=== PATIENT | female | born 1945 | race Caucasian/White ===

== ENCOUNTER 2023-09-23 22:45 | Inpatient (IN) | payer MEDICARE, OTHER, SELFPAY ==
[2023-09-23] VITALS (24 sets, daily range): BP systolic 148–234; BP diastolic 69–131; BMI 23.0
[2023-09-23 17:19] LABS: % Basophils 0.5 % (0-2); % Eosinophils 0.6 % (0-6); % Immature Granulocytes 0.3 % (0-0.5); % Lymphocytes 16.2 % (20.5-51.1); % Monocytes 5.9 % (1.7-9.3); % Neutrophils 76.5 % (42.2-75.2); Absolute Basophils 0.1 10^3/uL (0-0.2); Absolute Eosinophils 0.1 10^3/uL (0-0.7); Absolute Lymphocytes 1.6 10^3/uL (1.2-3.4); Absolute Monocytes 0.6 10^3/uL (0.1-0.6); Absolute Neutrophils 7.3 10^3/uL (1.4-6.5); Hematocrit 34.9 % (37.0-47.0); Hemoglobin 12.4 g/dL (12.0-16.0); Mean Corp Hgb Conc. 35.5 g/dL (33.0-37.0); Mean Corpuscular Hgb 32.5 pg (27.0-31.0); Mean Corpuscular Volume 91.6 fL (81.0-99.0); Mean Platelet Volume 8.1 fL (7.4-10.4); Nucleated Red Blood Cells % 0 %; Platelet Count 260 10^3/uL (130-400); Red Blood Cell Count 3.81 10^6/uL (4.20-5.40); Red Cell Dist. Width 13.3 % (11.5-14.5); White Blood Cell Count 9.6 10^3/uL (4.8-10.8)
[2023-09-23 17:30] LABS: ALT (SGPT) 21 U/L (0-35); AST (SGOT) 32 U/L (14-36); Albumin 4.8 g/dl (3.5-5.0); Alkaline Phosphatase 85 U/L (38-126); Blood Urea Nitrogen 19 mg/dl (7-17); Calcium 10.3 mg/dl (8.4-10.2); Carbon Dioxide 26 mmol/L (22-30); Chloride 97 mmol/L (98-107); Glucose 107 mg/dl (70-99); Potassium 4.5 mmol/L (3.5-5.1); Sodium 130 mmol/L (135-145); Total Bilirubin 0.7 mg/dl (0.2-1.3); Total Protein 7.1 g/dl (6.3-8.2); eGFR > 60.00
[2023-09-23] MEDS: APRESOLINE 10 MG IV (18:39)
--- NOTE | 2023-09-23 19:08 | ED.GENMED ---
History of Present Illness
<Blas Ahn MD, Resident - Last Filed: 09/24/23 00:14>
General
Chief Complaint: Change in Mental Status
Source: patient and family
Time Seen by Provider: 09/23/23 17:33
History of Present Illness
History of Present Illness:
78-year-old female, Ms. Ene [place] past medical history significant for hypertension, GERD, gout, osteoarthritis presented to the ER for getting her blood pressure, headache and episodes of confusion evaluated. Patient's states that she
has episodes of confusion from the past 1 year, 2-3 times every month. Patient also reports having blurry vision and headaches from the past 2 months and has scheduled a visit to see an outreach director. Patient stopped taking amlodipine 3 months
ago, currently on lisinopril and atenolol for her blood pressure management. She reports that her blood pressure was normal during her primary care visit on 09/20/2023. Patient's reports that she appeared a little confused in the morning,
she was holding flashlight in her hand and trying to switch on the TV, thinking that it was the TV remote. Patient also reports having headache 4/10, frontal, dull aching, but not has not taken any medications. Patient also reports that she lost
around 50 lbs in 2 years accompanied with loss of appetite.
Past History
<Blas Ahn MD, Resident - Last Filed: 09/24/23 00:14>
Past History
ED Past Medical History: CAD, HTN and Other (Gout)
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
Social History
Tobacco: Non-smoker
Alcohol: Occasional
Drug: Marijuana (Medical marijuana)
Personal:
Living: with family
Phy Exam
<Blas Ahn MD, Resident - Last Filed: 09/24/23 00:14>
Physical Exam
Physical Exam:
GEN: Well appearing, NAD, WDWN
Eyes: PERRLA, EOMs intact, no scleral icterus
HENT: NCAT, oral mucosa moist, no JVD, no cervical adenopathy.
Lungs: CTAB, no wheezes, rales, rhonchi, normal chest wall excursion
Cardiac: S1-S2+, no peripheral edema. Radial pulses 2+ bilat
Abdomen: S, NT, ND, NABS, no masses or hepatosplenomegaly
Neuro: AO x 3, no focal deficits to BUE/BLE, normal sensation throughout, cranial nerve examination 2-12 grossly intact.
Skin: No rashes, petechiae. Normal color, no pallor or jaundice.
Psych: Calm, cooperative, proper hygiene
Course
<Blas Ahn MD, Resident - Last Filed: 09/24/23 00:14>
Orders/Labs/Results
Orders:
Orders
09/23/23 17:02
Electrocardiogram (*1) Urgent
Reason for Study: TIA/Stroke
CT Head W/o Iv Contrast Urgent
Comment:
Reason For Exam: headache and confusion starting today
09/23/23 17:03
EKG- Treatment ONCE
09/23/23 17:12
Complete Blood Count/With Diff Urgent
Comprehensive Metabolic Panel Urgent
09/23/23 17:49
HydrALAZINE [Apresoline] 10 mg PO NOW STA
09/23/23 18:32
HydrALAZINE [Apresoline] 10 mg IV NOW STA
09/23/23 18:34
HydrALAZINE [Apresoline] 20 mg .ROUTE .STK-MED ONE
09/23/23 19:15
Labetalol HCl [Trandate] 10 mg IV NOW STA
09/23/23 21:45
Nicardipine 40 mg/200 ml [Cardene] 40 mg in 200 ml IV PER PROTOCOL
Initial dose in mg/hr, then titrate:: 5
Titrate to keep:: SBP 140 - 160 mmHg
Titrate by mg/hr:: 2.5 mg/hr
Frequency of titrations (minutes):: 5-15 minutes
Maximum dose in mg/hr:: 15
Begin to taper infusion when:: Remained at goal for 2hrs
Taper by mg/hr:: 2.5 mg/hr
Frequency of taper (minutes) if patient maintains goal:: every 15-30 minutes
Taper to off?: Yes
If infusion off & no longer maintaining goal:: Contact Provider
Nitroglycerin 100 mg/250 ml [Nitroglycerin Premix] 100 mg in 250 ml IV PER PROTOCOL
Initial dose in mcg/min, then titrate:: 25
Titrate to keep:: SBP < 160 mmHg
Titrate by mcg/min:: 5 mcg/min, may increase by 10 mcg/min if dose > 20 mcg/min
Frequency of titrations (minutes):: every 3-5 minutes
Maximum dose in mcg/min:: 200
Begin to taper infusion when:: Remained at goal for 2hrs
Taper by mcg/min:: 5 mcg/min
Frequency of taper (minutes) if patient maintains goal:: 30
Taper to off?: Yes
If infusion off & no longer maintaining goal:: Contact Provider
09/23/23 21:49
Troponin I Urgent
Urinalysis Urgent
Date Specimen was Collected: 09/24/23
Time Specimen was Collected: 00:21
09/23/23 22:18
Admit/Transfer Patient As Directed
Co-Sign Provider:
Level of Care: Inpatient admission
Assign to:: ICU
Physician / Group: Christian
Diagnosis: Hypertensive Emergency
Reason for Hospitalization: Hypertensive Emergency
Expected length of stay greater than two midnights?: Yes
ELOS- Estimated Length of Stay in days: 3
I certify the patient meets the requirements for IP care: Yes
09/23/23 22:19
PRN Pain Medication Management As Directed
May give lesser potent ordered pain med per pt: Yes
preference::
Protocol:: Medication orders for pain may be administered in a
manner that supports deferring to patient preference
when the pt is:
- Requesting an ordered lesser potent pain medication.
Least to most potent pain medications are defined
as: acetaminophen < NSAID < tramadol < opioids
(morphine, oxycodone, hydromorphone).
- Requesting a lesser dose of the same medication IF
ORDERED.
- Requesting a less intrusive route of administration
if both routes are prescribed by the provider (PO <
IV).
09/23/23 22:20
Code Status As Directed
Resuscitation Status: Full Code
09/24/23 00:35
Acetaminophen [Tylenol] 650 mg PO Q4HPRN PRN
09/24/23 00:35
Echo 2D MMode Doppler [Echo 2D MMode Color/Doppler] Routine
Reason for Study: Hypertensive Emergency
Consult Notification Routine
Specialty to Notify: Dye Tank Tender
Consult Notification Routine
Specialty to Notify: Nephrology
Dye Tank Tender Consult Routine
Consulting Provider: Berna Zavala
Was physician already notified: No
Reason for consult: Hypertensive Emergency
NEPHROLOGY CONSULT Routine
Consulting Provider: Doug Cruz
Was physician already notified: No
Reason for consult: Hypertensive Emergency
Activity As Directed
Activity Level: Ambulate
With Assistance
Bladder Scan As Directed
Follow Bladder Retention/Intermittent Cath Algorithm?: Yes
PRN if no void in __ hours: 6
Frequency: Per Retention Algorithm
If Bladder Scan Result >: 400
then:: Straight cath
EKG with chest pain [ECG as needed] As Directed
ECG as needed for:: Chest Pain
I/O [Intake/ Output] As Directed
Frequency: Per unit guidelines
Neurological Checks As Directed
Frequency: q4h
Orthostatic Vital Signs As Directed
Orthostatic VS Frequency: BID
Pneumatic Compression Sleeves As Directed
Type: Knee high
Straight Cath As Directed
Frequency: Per Retention Algorithm
Additional Instructions: straight cath as needed per acute urinary retention algorithm for 24 hrs
Additional Instructions: for bladder scan greater than 400 mL
Vital Signs As Directed
Frequency: Per unit guidelines
Weight As Directed
Frequency: Daily
Oxygen Therapy [O2 Therapy] [RESP] Routine
Titrate/Wean O2 to maintain O2 sat greater than (%): 94
Ot Eval And Treat Routine
PT Consult [Pt Eval And Treat] Routine
Activity Level: Ambulate
With Assistance
DX Deep Vein Thrombosis Video Routine
09/24/23 01:01
Intact PTH Includes Calcium Routine
TSH Reflex To Free T4 Routine
Troponin I Q6H
09/24/23 06:00
EKG [Electrocardiogram (*1)] IN AM
Reason for Study: Chest Pain
Regular
At Your Request: Limited Participation
ACTH [Adrenocorticotropic Hormone] [S] IN AM
Basic Metabolic Panel IN AM
Cardiovascular Evaluation IN AM
Complete Blood Count/No Diff IN AM
Cortisol, Random IN AM
MR Brain Without Contrast IN AM
Comment:
Reason For Exam: CVA / TIA
Recent pill cam endoscopy?: No
09/24/23 06:35
Troponin I Q6H
09/24/23 08:00
Aspirin Chewable [Low Strength Aspirin] 81 mg PO DAILY
Atenolol [Tenormin] 100 mg PO BID
Duloxetine Delayed Release [Cymbalta Delayed Release] 30 mg PO DAILY
09/24/23 12:35
Troponin I Q6H
Abnormal Lab Results
09/23/23
17:12
RBC 3.81 L 10^6/uL
(4.20-5.40)
Hct 34.9 L %
(37.0-47.0)
MCH 32.5 H pg
(27.0-31.0)
Absolute Neuts (auto) 7.3 H 10^3/uL
(1.4-6.5)
Neutrophils % 76.5 H %
(42.2-75.2)
Lymphocytes % 16.2 L %
(20.5-51.1)
Sodium 130 L mmol/L
(135-145)
Chloride 97 L mmol/L
(98-107)
BUN 19 H mg/dl
(7-17)
Glucose 107 H mg/dl
(70-99)
Calcium 10.3 H mg/dl
(8.4-10.2)
09/23/23 17:12
09/23/23 17:12
Vital Signs
Initial and Last Documented VS:
Initial Vital Signs
Temp Pulse Resp BP Pulse Ox
98.1 F 67 18 233/130 99
09/23/23 16:58 09/23/23 16:58 09/23/23 16:58 09/23/23 16:58 09/23/23 16:58
Last Documented Vital Signs
Temp Pulse Resp BP Pulse Ox
98.4 F 73 13 140/81 100
09/24/23 01:00 09/24/23 01:05 09/24/23 01:05 09/24/23 01:00 09/24/23 01:05
<Richard Kennedy MD - Last Filed: 09/24/23 01:56>
Orders/Labs/Results
Orders:
Orders
09/23/23 17:02
Electrocardiogram (*1) Urgent
Reason for Study: TIA/Stroke
CT Head W/o Iv Contrast Urgent
Comment:
Reason For Exam: headache and confusion starting today
09/23/23 17:03
EKG- Treatment ONCE
09/23/23 17:12
Complete Blood Count/With Diff Urgent
Comprehensive Metabolic Panel Urgent
09/23/23 17:49
HydrALAZINE [Apresoline] 10 mg PO NOW STA
09/23/23 18:32
HydrALAZINE [Apresoline] 10 mg IV NOW STA
09/23/23 18:34
HydrALAZINE [Apresoline] 20 mg .ROUTE .STK-MED ONE
09/23/23 19:15
Labetalol HCl [Trandate] 10 mg IV NOW STA
09/23/23 21:45
Nicardipine 40 mg/200 ml [Cardene] 40 mg in 200 ml IV PER PROTOCOL
Initial dose in mg/hr, then titrate:: 5
Titrate to keep:: SBP 140 - 160 mmHg
Titrate by mg/hr:: 2.5 mg/hr
Frequency of titrations (minutes):: 5-15 minutes
Maximum dose in mg/hr:: 15
Begin to taper infusion when:: Remained at goal for 2hrs
Taper by mg/hr:: 2.5 mg/hr
Frequency of taper (minutes) if patient maintains goal:: every 15-30 minutes
Taper to off?: Yes
If infusion off & no longer maintaining goal:: Contact Provider
Nitroglycerin 100 mg/250 ml [Nitroglycerin Premix] 100 mg in 250 ml IV PER PROTOCOL
Initial dose in mcg/min, then titrate:: 25
Titrate to keep:: SBP < 160 mmHg
Titrate by mcg/min:: 5 mcg/min, may increase by 10 mcg/min if dose > 20 mcg/min
Frequency of titrations (minutes):: every 3-5 minutes
Maximum dose in mcg/min:: 200
Begin to taper infusion when:: Remained at goal for 2hrs
Taper by mcg/min:: 5 mcg/min
Frequency of taper (minutes) if patient maintains goal:: 30
Taper to off?: Yes
If infusion off & no longer maintaining goal:: Contact Provider
09/23/23 21:49
Troponin I Urgent
Urinalysis Urgent
Date Specimen was Collected: 09/24/23
Time Specimen was Collected: 00:21
09/23/23 22:18
Admit/Transfer Patient As Directed
Co-Sign Provider:
Level of Care: Inpatient admission
Assign to:: ICU
Physician / Group: Christian
Diagnosis: Hypertensive Emergency
Reason for Hospitalization: Hypertensive Emergency
Expected length of stay greater than two midnights?: Yes
ELOS- Estimated Length of Stay in days: 3
I certify the patient meets the requirements for IP care: Yes
09/23/23 22:19
PRN Pain Medication Management As Directed
May give lesser potent ordered pain med per pt: Yes
preference::
Protocol:: Medication orders for pain may be administered in a
manner that supports deferring to patient preference
when the pt is:
- Requesting an ordered lesser potent pain medication.
Least to most potent pain medications are defined
as: acetaminophen < NSAID < tramadol < opioids
(morphine, oxycodone, hydromorphone).
- Requesting a lesser dose of the same medication IF
ORDERED.
- Requesting a less intrusive route of administration
if both routes are prescribed by the provider (PO <
IV).
09/23/23 22:20
Code Status As Directed
Resuscitation Status: Full Code
09/24/23 00:35
Acetaminophen [Tylenol] 650 mg PO Q4HPRN PRN
09/24/23 00:35
Echo 2D MMode Doppler [Echo 2D MMode Color/Doppler] Routine
Reason for Study: Hypertensive Emergency
Consult Notification Routine
Specialty to Notify: Dye Tank Tender
Consult Notification Routine
Specialty to Notify: Nephrology
Dye Tank Tender Consult Routine
Consulting Provider: Berna Zavala
Was physician already notified: No
Reason for consult: Hypertensive Emergency
NEPHROLOGY CONSULT Routine
Consulting Provider: Doug Cruz
Was physician already notified: No
Reason for consult: Hypertensive Emergency
Activity As Directed
Activity Level: Ambulate
With Assistance
Bladder Scan As Directed
Follow Bladder Retention/Intermittent Cath Algorithm?: Yes
PRN if no void in __ hours: 6
Frequency: Per Retention Algorithm
If Bladder Scan Result >: 400
then:: Straight cath
EKG with chest pain [ECG as needed] As Directed
ECG as needed for:: Chest Pain
I/O [Intake/ Output] As Directed
Frequency: Per unit guidelines
Neurological Checks As Directed
Frequency: q4h
Orthostatic Vital Signs As Directed
Orthostatic VS Frequency: BID
Pneumatic Compression Sleeves As Directed
Type: Knee high
Straight Cath As Directed
Frequency: Per Retention Algorithm
Additional Instructions: straight cath as needed per acute urinary retention algorithm for 24 hrs
Additional Instructions: for bladder scan greater than 400 mL
Vital Signs As Directed
Frequency: Per unit guidelines
Weight As Directed
Frequency: Daily
Oxygen Therapy [O2 Therapy] [RESP] Routine
Titrate/Wean O2 to maintain O2 sat greater than (%): 94
Ot Eval And Treat Routine
PT Consult [Pt Eval And Treat] Routine
Activity Level: Ambulate
With Assistance
DX Deep Vein Thrombosis Video Routine
09/24/23 01:01
Intact PTH Includes Calcium Routine
TSH Reflex To Free T4 Routine
Troponin I Q6H
09/24/23 06:00
EKG [Electrocardiogram (*1)] IN AM
Reason for Study: Chest Pain
Regular
At Your Request: Limited Participation
ACTH [Adrenocorticotropic Hormone] [S] IN AM
Basic Metabolic Panel IN AM
Cardiovascular Evaluation IN AM
Complete Blood Count/No Diff IN AM
Cortisol, Random IN AM
MR Brain Without Contrast IN AM
Comment:
Reason For Exam: CVA / TIA
Recent pill cam endoscopy?: No
09/24/23 06:35
Troponin I Q6H
09/24/23 08:00
Aspirin Chewable [Low Strength Aspirin] 81 mg PO DAILY
Atenolol [Tenormin] 100 mg PO BID
Duloxetine Delayed Release [Cymbalta Delayed Release] 30 mg PO DAILY
09/24/23 12:35
Troponin I Q6H
Abnormal Lab Results
09/23/23
17:12
RBC 3.81 L 10^6/uL
(4.20-5.40)
Hct 34.9 L %
(37.0-47.0)
MCH 32.5 H pg
(27.0-31.0)
Absolute Neuts (auto) 7.3 H 10^3/uL
(1.4-6.5)
Neutrophils % 76.5 H %
(42.2-75.2)
Lymphocytes % 16.2 L %
(20.5-51.1)
Sodium 130 L mmol/L
(135-145)
Chloride 97 L mmol/L
(98-107)
BUN 19 H mg/dl
(7-17)
Glucose 107 H mg/dl
(70-99)
Calcium 10.3 H mg/dl
(8.4-10.2)
09/23/23 17:12
09/23/23 17:12
Vital Signs
Initial and Last Documented VS:
Initial Vital Signs
Temp Pulse Resp BP Pulse Ox
98.1 F 67 18 233/130 99
09/23/23 16:58 09/23/23 16:58 09/23/23 16:58 09/23/23 16:58 09/23/23 16:58
Last Documented Vital Signs
Temp Pulse Resp BP Pulse Ox
98.4 F 73 13 140/81 100
09/24/23 01:00 09/24/23 01:05 09/24/23 01:05 09/24/23 01:00 09/24/23 01:05
<Blas Ahn MD, Resident - Last Filed: 09/24/23 00:14>
MDM/Problems Addressed
Differential Diagnosis Includes:
CVA, electrolyte abnormalities, hypo-/hyperglycemia, hypertensive emergency.
MDM/Problems Addressed:
Patient is hypertensive on presentation�233/130.
Ordered 10 mg IV hydralazine.
Hyponatremic at 130, mild glucose elevation�107
CT head�no evidence of acute intracranial hemorrhage.
Blood pressure improved to 218/95.
Ordered 10 mg IV labetalol.
<Blas Ahn MD, Resident - Last Filed: 09/24/23 00:14>
*Critical Care Note
Total Time (30-74mins, 75-104mins- exclusive of procedures): Not Applicable
ED Attending Note
<Blas Ahn MD, Resident - Last Filed: 09/24/23 00:14>
-
Portions of this chart may have been created with voice recognition software.� Occasional wrong word or��sound alike� substitutions may have occurred due to the inherent limitations of voice recognition software.
<Richard Kennedy MD - Last Filed: 09/24/23 01:56>
ED Attending Note
Patient seen and examined by attending physician: Yes
ED Attending Note:
Patient with history of hypertension on atenolol and lisinopril, presents to ED secondary to significant elevated blood pressure associated with confusion this morning. Per spouse, when patient was attempting to change channel on TV, she she was
holding up a flashlight instead, which has never happened before. However, patient has had intermittent episodes 'confusion' over the past 2 years, consisting mainly of short-term memory loss and repetitive speech. In addition, patient has had
unintentional weight loss of approximately 15 pounds over the past 2 years, with decreased appetite. Patient has seen her primary care physician and is currently being evaluated, including recent prescription to obtain CT chest and abdomen as an
outpatient. At the time of evaluation ED, patient has no complaints, although she had headache this morning when her blood pressure noted to be high. Denies dizziness. Denies blurred vision. Denies loss of sensation or weakness. Denies nausea
or vomiting. Denies chest pain. Denies recent illness. Denies recent change in medications or diet
Physical Exam
General: no apparent distress, not acutely ill. afebrile. hypertensive.
Head: nc/at. eomi
Neck: supple. no meningeal signs.
Heart: s1/s2 regular rate and rhythm, no murmur. equal radial pulses.
Lungs: no acute respiratory distress. clear bilaterally
Abdomen: normal bowel sounds. not tender.
Neuro: alert and oriented. no focal neurological deficits
Skin: no rash
Psychiatric: well kept. interactive and cooperative
Extremities: no edema. no calf tenderness.
CT head: no acute findings. 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
History and exam consistent with likely hypertensive urgency versus emergency. Patient treated with hydralazine initially with minimal improvement in blood pressure. Patient will be given additional dose of labetalol and reassess.
As patient's blood pressure remains elevated, patient will be admitted for further evaluation and treatment, including initiation of nicardipine infusion.
Critical care statement: A total of 40 minutes of critical care time was provided for this patient. This includes management of unstable vital signs, evaluation of the patient at bedside, reviewing the patient's pertinent medical records, review of
old EKGs and review of pertinent medical records. This time with separate from time utilized to perform the aforementioned documented procedures
Discharge Plan
Departure
Patient Disposition: Admit
Date of Disposition: 09/23/23
Time of Disposition: 21:32
Admit to: IMU
Presentation/result/management discussed w/ accepting MD/DO: Hospitalist
Discharge Problem:
Hypertensive emergency
Interventions
Interventions:
*Risk Screen - Suicide Last Done: 09/23/23 16:58
*General Assessment Last Done: 09/23/23 16:58
*Neglect/Abuse Screening Last Done: 09/23/23 16:58
*ED COVID-19 Vaccine History Last Done: 09/23/23 19:00
*Nursing Disposition Last Done: 09/24/23 00:20
ED- Pulmonary Assessment Last Done: 09/23/23 19:00
ED- Neurological Assessment Last Done: 09/23/23 19:00
ED- Cardiac Assessment Last Done: 09/23/23 19:00
ED Swallowing Screen Last Done: 09/23/23 19:00
Discharge Date and Time
Discharge Date/Time: 09/24/23 00:20
[2023-09-23] MEDS: TRANDATE 10 MG IV (20:33)
[2023-09-23] MEDS: CARDENE 200 IV (22:21)
--- NOTE | 2023-09-23 22:23 | HPS.HSE ---
Family Physician
-
Family Physician: Melvin Valencia
Chief Complaint
-
Confusion
History of Present Illness
Patient is a 78y F with PMH significant for hypertension, GERD, gout and pre-diabetes who presents to ED complaining of confusion and headache. History obtained from patient and her at the bedside. Patient has reportedly been having
intermittent / brief episodes of confusion or disorientation for the past 3 months or so. Today, she was attempting to use a flashlight to change the channel on the television when her noticed and checked her blood pressure. By her home
cuff, the systolic pressure was > 200. called their PCP who recommended ED evaluation. Here in the ED, patient has remained significantly hypertensive despite doses of hydralazine and labetalol.
Patient states that she had a mild frontal headache this AM. This has since improved.
She has been dealing with blurred vision for several months now and has an upcoming appt with Ophthalmology.
She denies any focal numbness, tingling or weakness - but does appreciate occasional poor balance and notes that she has to 'hold on' when climbing the stairs.
Patient has been noted to have very poor appetite and has lost about 50 lbs in the past year and a half. She has mild nausea, but no emesis or diarrhea. No bloody stools. No urinary complaints. No fevers / chills, chest pain or dyspnea.
Patient states that she was taken off of her amlodipine about 3 months ago.
She was seen by her PCP on Sunday due to her weight loss and anorexia. A CT A/P was recommended at that time which has yet to obtain. Her BP at that visit was reportedly 120/76.
also states that patient has had chronic issues with insomnia and has tried multiple remedies. Most recently she has used medical marijuana with some success.
She changed to marijuana troches about 3 months ago.
Patient has a Rx for as needed alprazolam, but notes that she has not taken this in several weeks.
Medical History
Past Medical History
Past Medical History: Reports Other
Additional Past Medical History:
Hypertension
Gout
Sarcoma
GERD
Pre-Diabetes
Anxiety / Insomnia
Past Surgical History: Reports Other
Additional Past Surgical History:
Right TKA
Sarcoma Excision (Arm)
Social History
Tobacco: Non-smoker
Alcohol: Occasional (Approx 1 / week.)
Drug: Marijuana (Medical marijuana troches.)
Personal:
Living: With Family
Family History
Family History: Not pertinent
Allergies / Home Medications
Allergies reflects when Allergies were last updated in [employer].
Home Medications with original date entered in [employer]
Allergy/Medication List:
Allergies
Allergy/AdvReac Type Severity Reaction Status Date / Time
ciprofloxacin [From Cipro] Allergy severe Verified 06/19/22 06:04
Itching
erythromycin base Allergy severe Verified 06/19/22 06:04
Itching
hydrocodone Allergy severe Verified 06/19/22 06:04
Itching
oxycodone Allergy severe Verified 06/19/22 06:04
Itching
shellfish derived Allergy severe Verified 06/19/22 06:04
Itching
Home Medications
allopurinol 100 mg tablet 100 mg PO DAILY Gout 05/25/22
alprazolam 0.25 mg tablet 0.25 mg PO DAILY PRN anxiety 05/25/22
atenolol 100 mg tablet 100 mg PO BID Blood pressure 05/25/22
lisinopril 40 mg tablet 40 mg PO DAILY Blood pressure 05/25/22
duloxetine 30 mg capsule,delayed release 30 mg PO DAILY 09/23/23
ezetimibe 10 mg tablet 10 mg PO DAILY 09/23/23
Review of Systems
-
History Source: Patient and Family
A 12 point ROS was completed and negative except as noted: Yes
Constitutional: Reports Weight Loss (50lbs in 1.5 years.), Fatigue and Sleep Disturbance; Denies Fever
EENT: Denies Sore Throat
Respiratory: Denies Cough or Trouble Breathing
Cardiac: Denies Chest Pain, Diaphoresis, Palpitations or Syncope
Abdomen/GI: Reports Nausea and Anorexia; Denies Abdominal Pain, Vomiting, Diarrhea, Constipated, Bloody Stools or Black Stools
: Denies Dysuria, Frequency or Flank Pain
Musculoskeletal: Denies Joint Pain, Joint Swelling or Edema
Neurological: Reports Headache and Other (Poor balance); Denies Dizzy, Weakness or Numbness
Psych: Reports Anxiety; Denies Depression
Physical Exam
Vital Signs
Vital Signs
Temp Pulse Resp BP Pulse Ox
98.1 F 74 12 190/104 98
09/23/23 16:58 09/23/23 20:15 09/23/23 20:15 09/23/23 20:07 09/23/23 20:15
Physical Exam
General: Other (78y F in no acute distress.)
HEENT: Moist mucous membranes, PERRLA and Other (Neck supple.)
Respiratory: Clear; No Wheezes, Rales or Rhonchi
Cardiac: S1/S2 and Regular Rhythm; No Murmur
GI: Soft, Non Tender, Non Distended and Normal Bowel Sounds
Musculoskeletal: No Clubbing, No Cyanosis and No Edema
Neuro: AO x 3 and Nonfocal/grossly intact
Psych: No Anxious or Depressed
Laboratory Results
-
09/23/23 17:12
09/23/23 17:12
Laboratory Results
Total Bilirubin 0.7 mg/dl (0.2-1.3) 09/23/23 17:12
AST 32 U/L (14-36) 09/23/23 17:12
ALT 21 U/L (0-35) 09/23/23 17:12
Alkaline Phosphatase 85 U/L (38-126) 09/23/23 17:12
Impression/Plan
-
A/P: Patient is a 78y F with PMH significant for hypertension who presents to ED complaining of headache, confused and blurry vision.
Hypertensive Emergency
Acute TME secondary to the above
- Admit to ICU for further evaluation and treatment.
- Patient presents with markedly elevated BP and evidence of end-organ involvement in the form of acute TME / confusion.
- EKG unremarkable.
- Check additional studies for evidence of end-organ impact (UA, troponin, etc).
- IV nicardipine infusion and titrate as needed for BP control.
- Suspect that degree of uncontrolled hypertension has been chronic and is likely related to recent issues with blurry vision, intermittent confusion, etc.
- Symptoms began about 3 months ago which coincides with both cessation of amlodipine and initiation of marijuana troches.
- Transition to PO regimen once BP adequately controlled.
- Nephrology evaluation for recommendations / secondary work-up.
- Check MRI brain in AM for completeness.
- Check TSH, AM cortisol, etc.
- Follow for clinical changes.
Hypercalcemia
- Mild hypercalcemia. Check iPTH and follow-up results.
Mild Hyponatremia
- Follow for changes. Hesitate to initiate fluid restriction at this time given reportedly poor PO intake.
- Check TFTs, cortisol, etc as noted above.
Weight Loss
- Reported 50 lbs weight loss in the past 1 1/2 years.
- Patient reportedly up to date with routine screenings (mammo, colonoscopy, etc).
- CT A/P ordered as an outpatient for further evaluation.
Anxiety / Insomnia
- Continue duloxetine.
- Hold marijuana during inpatient stay - ? related to confusion issues, etc given coincidental timing?
DVT Prophylaxis: SCDs
Code Status: Full
[2023-09-24] VITALS (59 sets, daily range): BP systolic 112–197; BP diastolic 62–119; PULSE 66–83; O2SAT 98; BMI 21.0
[2023-09-24 00:31] LABS: Urine Albumin Negative (Neg - Trace); Urine Bilirubin Negative (Negative); Urine Character Clear (Clear); Urine Color Yellow; Urine Glucose Negative (Negative); Urine Ketone 1+ (Negative); Urine Leukocyte 2+ (Negative); Urine Nitrite Negative (Negative); Urine Occult Blood Negative (Negative); Urine Urobilinogen Negative (Neg - 1+)
--- NOTE | 2023-09-24 00:40 | PTCARENOTE ---
Rec'd pt from ER via stretcher on monitor & cardene at 5mg/hr; oriented to ICU routine, CHG bath done on adm, pt oriented x3, cooperative, DEVIN at 3mm, follows commands, forgetful, denies WHITNEY, has blurry vision which she has had for a while- was
supposed to see opthomologist this week, SR w/ 1' AV block, goal sbp 140-160 w/ Cardene- see flow sheet for titrations, weak distal pulses, no edema, skin warm/dry, RA, lungs clear, sat 100, + bowel sounds, no bm , abd soft, no n/v, uday sips h20,
HNV yet
[2023-09-24 00:52] LABS: Urine White Cell 26-30 /HPF (0-5)
[2023-09-24 00:53] LABS: Urine Red Blood Cell 0-2 /HPF (0-2)
[2023-09-24 00:56] LABS: Troponin I 0.017 ng/ml
[2023-09-24 01:26] LABS: INR 1.08; PT 13.8 Sec (11.4-14.6)
[2023-09-24 01:27] LABS: APTT 30.9 Sec (23.4-35.0); Calcium 10.3 mg/dl (8.4-10.2); Magnesium 1.9 mg/dl (1.6-2.3); Phosphorus 3.5 mg/dl (2.5-4.5)
[2023-09-24 01:44] LABS: Troponin I < 0.012 ng/ml
[2023-09-24] MEDS: XANAX 0.5 MG PO ×2 (01:46→22:59)
--- NOTE | 2023-09-24 01:46 | PTCARENOTE ---
xanax 0.5 mg po given as ordered
[2023-09-24 02:41] LABS: TSH Reflex To Free T4 3.37 uIU/ml (0.47-4.68)
--- NOTE | 2023-09-24 03:00 | PTCARENOTE ---
desat to 85 while sleeping, 2 liters nc applied
--- NOTE | 2023-09-24 04:04 | PTCARENOTE ---
sys reviewed, cardene off at 0300, bp stable
--- NOTE | 2023-09-24 05:38 | PTCARENOTE ---
disoriented to place, year, reoriented, very forgetful, cardene restarted at 2.5 mg
[2023-09-24 05:48] LABS: Hematocrit 37.1 % (37.0-47.0); Hemoglobin 13.3 g/dL (12.0-16.0); Mean Corp Hgb Conc. 35.8 g/dL (33.0-37.0); Mean Corpuscular Hgb 33.1 pg (27.0-31.0); Mean Corpuscular Volume 92.3 fL (81.0-99.0); Mean Platelet Volume 8.3 fL (7.4-10.4); Platelet Count 236 10^3/uL (130-400); Red Blood Cell Count 4.02 10^6/uL (4.20-5.40); Red Cell Dist. Width 13.2 % (11.5-14.5); White Blood Cell Count 8.6 10^3/uL (4.8-10.8)
[2023-09-24 06:04] LABS: Blood Urea Nitrogen 13 mg/dl (7-17); Carbon Dioxide 25 mmol/L (22-30); Chloride 99 mmol/L (98-107); Estimated Creatinine Clearance 62 ml/min; Glucose 97 mg/dl (70-99); HDL Cholesterol 84 mg/dl; LDL Cholesterol, Calculated 103 mg/dl; Potassium 3.9 mmol/L (3.5-5.1); Sodium 131 mmol/L (135-145); Total Cholesterol 197 mg/dl (50-199); Triglyceride 50 mg/dl (10-149); Very Low Density Lipoprotein 10 mg/dl (0-30); eGFR > 60.00
[2023-09-24 06:08] LABS: Troponin I < 0.012 ng/ml
[2023-09-24 06:35] LABS: Cortisol, Random 11.3 ug/dl
--- NOTE | 2023-09-24 07:21 | CON.INTV ---
Consultation
Consultation Request
Date/Time Consultation Requested: 09/24/23
Date/Time Consultation Performed: 09/24/23
Performing Provider: Arturo
Reason for Consultation: ICU
Medical History
-
History of Present Illness:
Patient is a 78-year-old female with previous history of hypertension, gout, sarcoma status post excision, GERD presenting to ER with confusion and headaches. She has been having intermittent and brief episodes of confusion or disorientation
over the past 3 months. Her blood pressure at home reportedly greater than 200 systolic. In ER, this was confirmed and she was given doses of hydralazine and labetalol without resolution. She is placed on Cardene drip. Admitted to ICU.
Family notes ongoing complaints of insomnia. Never had a sleep study.
Past Medical History
Past Medical History: Other (see list below)
Social History
Tobacco: Non-smoker
Alcohol: None
Drug: None
Family History
Family History: Reviewed & Not Pertinent
Allergies / Home Medications
Allergies
Allergy/AdvReac Type Severity Reaction Status Date / Time
ciprofloxacin [From Cipro] Allergy severe Verified 06/19/22 06:04
Itching
erythromycin base Allergy severe Verified 06/19/22 06:04
Itching
hydrocodone Allergy severe Verified 06/19/22 06:04
Itching
oxycodone Allergy severe Verified 06/19/22 06:04
Itching
shellfish derived Allergy severe Verified 06/19/22 06:04
Itching
Home Medications
�Medication �Instructions �Recorded �Confirmed �Last Taken �Type
allopurinol 100 mg tablet 100 mg PO DAILY Gout 05/25/22 09/23/23 06/18/22 16:00 History
alprazolam 0.25 mg tablet 0.25 mg PO DAILY PRN anxiety 05/25/22 09/23/23 06/19/22 05:00 History
atenolol 100 mg tablet 100 mg PO BID Blood pressure 05/25/22 09/23/23 06/19/22 05:00 History
lisinopril 40 mg tablet 40 mg PO DAILY Blood pressure 05/25/22 09/23/23 06/18/22 16:00 History
duloxetine 30 mg capsule,delayed 30 mg PO DAILY 09/23/23 09/23/23 Unknown History
release
ezetimibe 10 mg tablet 10 mg PO DAILY 09/23/23 09/23/23 Unknown History
Review of Systems
-
History Source: Patient
All other systems: Negative unless noted
Vitals / Labs / Diagnostic Testing
Vital Signs
Temp Pulse Resp BP Pulse Ox
98.2 F 65 15 150/74 99
09/24/23 04:00 09/24/23 06:16 09/24/23 06:16 09/24/23 06:16 09/24/23 06:16
Lab Data
09/24/23 05:33
09/24/23 05:33
Laboratory Results
09/24/23
01:01
PT 13.8
INR 1.08
APTT 30.9
Diagnostic Testing:
Physical Exam
-
HEENT: Normocephalic, Anicteric and Moist Mucous Membranes
Cardiovascular: S1/S2 and Regular Rhythm
Respiratory: Clear and Non-Labored Respirations
GI: Soft, Non Distended and Non Tender
Neurology: Awake, Alert, Oriented, AO x 3 and No Motor Deficits
Skin: Warm, Dry and Good Color
General: Comfortable and Other (NAD)
Assessment
-
Patient is a 78-year-old female with previous history of hypertension, gout, sarcoma status post excision, GERD presenting to ER with confusion and headaches. She has been having intermittent and brief episodes of confusion or disorientation
over the past 3 months. Her blood pressure at home reportedly greater than 200 systolic. In ER, this was confirmed and she was given doses of hydralazine and labetalol without resolution. She is placed on Cardene drip. Admitted to ICU.
Hypertensive Emergency
Acute TME secondary to the above
Mild hypercalcemia
Weight Loss - reported 50 lbs weight loss in the past 1 1/2 years
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
Hypertension
Gout
Sarcoma
GERD
Pre-Diabetes
Anxiety / Insomnia
O/A s/p R TKA Dr. 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
Sarcoma Excision (Arm)
Medical THC use
Plan
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
Denies pain at this time.
Has insomnia, never had sleep study
Pain/sedation: PRN
RASS goals: 0
Hemodynamically stable, not requiring pressors.
Cardiac history reviewed --poorly controlled HTN, on cardene
Wean as tolerated, BP goals
Prior ECHO reviewed indicating normal function
Resume home meds
Monitor on telemetry
Oxygen needs: stable on RA
Prior history of lung disease: none
Supplemental O2 as indicated to maintain sats > 89%
CXR/CT reviewed indicating NAD
Advance diet as tolerated
Edge Grinder Machine recommendations
Aspiration precautions, HOB > 30 degrees
Speech therapy eval can be considered if at elevated risk
GI prophylaxis if indicated for mechanical ventilation >48 hours, prior history of GERD, stress ulcer formation in the critically ill
Creat at baseline, no history of renal disease
Void trials
Follow urine output, critical I/Os
Replete electrolytes as needed
Renal following for HTN management
No signs/symptoms suspicious for infectious etiology at this time
Observe off antibiotics for now
Follow fever trend, WBC count
CBC stable, no signs of bleeding or coagulopathy.
DVT prophylaxis as assessed based on risk, including mechanical SCDs
Can transfuse if indicated for Hb <7, plt < 10
INR WNL
No prior h/o diabetes or thyroid disease
Monitor accuchecks PRN/SS coverage if needed
TSH WNL
If off cardene, can transfer to [facility] for further management. We will sign off upon transfer.
Diagnostic Data
Chest X-Ray: 09/24/23- 1. No radiographic evidence for acute cardiopulmonary disease.
2. Mild cardiomegaly.
CT Scan: HEAD 09/23/23- No acute intracranial abnormality noted. No acute intracranial hemorrhage. Chronic microvascular white matter ischemic disease. Tiny chronic right anterior limb internal capsule lacunar infarct.
Echo: 09/24/23- Normal LV size and function with no regional wall motion abnormalities. LVEF is 65 to 70% but Capps's method of test. Mild concentric LVH. Stage I diastolic dysfunction suggestive of abnormal relaxation.
Normal right ventricular size and function. No significant valvular disease. No prior study available for comparison.
PFT's:
Reports and relevant images were personally reviewed.
-----
Critical Care time 60 mins -- The patient is admitted for acute critical illness for the treatment of vital organ failure and/or prevention of further life-threatening conditions. Total care includes time spent in review of history, physical exam,
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
--- NOTE | 2023-09-24 08:30 | PTCARENOTE ---
Received pt @ change of shift. Drowsy, awakens to verbal stimuli, oriented to self; required reorientation to time/place. Blurred vision. SR w 1st degree AVB. Cardene gtt turned off by nightshift RN- see flow sheet to keep SBP between 140-160.
Weaned to RA, SpO2 99% tolerating wean. +BS, abd soft/nt. Poor christelle, assisted w odering breakfast. Stress inc @ x's, purewick in place. Assisted w AM hygiene. Instructed on how to report care concerns and call lavell duarte in reach. Bed alarm active.
[2023-09-24] MEDS: CYMBALTA DELAYED RELEASE 30 MG PO (08:53)
[2023-09-24] MEDS: TENORMIN 100 MG PO ×2 (08:53→19:35)
[2023-09-24] MEDS: LOW STRENGTH ASPIRIN 81 MG PO (08:53)
--- NOTE | 2023-09-24 11:01 | PTCARENOTE ---
Carlos gtt back on @ 0855 to keep SBP between 140-160- see flow sheet; remains on @ this time. Awaiting Brain MRI today. Pt.'s to bedside. Pt. and updated on plan of care. Bed alarm active; call monte in reach.
--- NOTE | 2023-09-24 12:00 | PTCARENOTE ---
While pt working w PT/OT, pt ambulated into BR and had brief unresponsive episode. Max assisted into chair and then into bed. Immediate recovery once back to bed; benign neuro check and SBP 110's. Cardene infusion off- see flow sheet. Bedrest
maintained s/p episode. Bed alarm active.
--- NOTE | 2023-09-24 12:09 | W.CON.NEPH ---
Consultation
-
Date/Time Consultation Requested: 09/24/23 0035
Date/Time Consultation Performed: 09/24/23 1100
Requesting Provider: Tripp Alvarenga
Performing Provider: Sonya Gonzalez
Reason for Consultation: HTN emergency
Medical History
-
Chief Complaint: high BPs
History of Present Illness:
Patient is a 78y F with PMH significant for hypertension on BB, Lisinopril, GERD, gout on Allopurinol, Anxiety on Cymbalta, prn xanax, HLD on Ezetimibe, and pre-diabetes who presents to ED complaining of confusion and headache with high SBP>200.
History obtained from patient and her at the bedside. Patient has reportedly been having intermittent / brief episodes of confusion or disorientation for the past 3 months or so. Last night, she was attempting to use a flashlight to change
the channel on the television when her noticed and checked her blood pressure. By her home cuff, the systolic pressure was > 200. called their PCP who recommended ED evaluation. Here in the ED, patient has remained significantly
hypertensive despite doses of hydralazine and labetalol hence Nicardine was added. This morning she was with PT and almost passed out which improved once she was on bed and held nicardipine. Reportedly in May visit her PCP discontinued Amlodipine
with postural dizziness and SBP<120. She had another visit last Sunday and noted to have SBP in 120s. She has chr blurry vision hence helps her to drive and has an upcoming appt with Ophthalmology. A day prior to coming to ER both pt and
reviewed the meds and felt she was on lot of meds which lead her to have increased anxiety levels.
Patient has been noted to have very poor appetite and has lost about 50 lbs in the past year and a half. She has mild nausea, but no emesis or diarrhea. No bloody stools. No urinary complaints. No fevers / chills, chest pain or dyspnea. A CT A/P
was recommended at that time which has yet to obtain.
Noted history from from chart that patient has had chronic issues with insomnia and has tried multiple remedies. Most recently she has used medical marijuana with some success.
She changed to marijuana troches about 3 months ago.
During visit pt seem to be confused and most of the history is from .
I spoke with PCP and he is really concerned about her recent wt loss.
Past Medical History
Hypertension
Gout
Sarcoma
GERD
Pre-Diabetes
Anxiety / Insomnia
Past Surgical History: Other (Right TKA Sarcoma Excision (Arm))
Social History
Tobacco: Non-Smoker
Alcohol: Occasional (1drink/wk)
Personal:
Living: With Family
Family History
Family History: Not Pertinent
Allergies / Home Medications
Allergy/AdvReac Type Severity Reaction Status Date / Time
ciprofloxacin [From Cipro] Allergy severe Verified 06/19/22 06:04
Itching
erythromycin base Allergy severe Verified 06/19/22 06:04
Itching
hydrocodone Allergy severe Verified 06/19/22 06:04
Itching
oxycodone Allergy severe Verified 06/19/22 06:04
Itching
shellfish derived Allergy severe Verified 06/19/22 06:04
Itching
�Medication �Instructions �Recorded �Confirmed �Type
allopurinol 100 mg tablet 100 mg PO DAILY Gout 05/25/22 09/23/23 History
alprazolam 0.25 mg tablet 0.25 mg PO DAILY PRN anxiety 05/25/22 09/23/23 History
atenolol 100 mg tablet 100 mg PO BID Blood pressure 05/25/22 09/23/23 History
lisinopril 40 mg tablet 40 mg PO DAILY Blood pressure 05/25/22 09/23/23 History
duloxetine 30 mg capsule,delayed 30 mg PO DAILY 09/23/23 09/23/23 History
release
ezetimibe 10 mg tablet 10 mg PO DAILY 09/23/23 09/23/23 History
Review of Systems
-
unable to obtain much of history due to confusion
Physical Exam
Vital Signs
Vital Signs
Temp Pulse Resp BP Pulse Ox
98.2 F 64 15 191/101 99
09/24/23 04:00 09/24/23 08:53 09/24/23 06:16 09/24/23 08:53 09/24/23 09:57
Lab Results
WBC 8.6 10^3/uL (4.8-10.8) 09/24/23 05:33
RBC 4.02 10^6/uL (4.20-5.40) L 09/24/23 05:33
Hgb 13.3 g/dL (12.0-16.0) 09/24/23 05:33
Hct 37.1 % (37.0-47.0) 09/24/23 05:33
Plt Count 236 10^3/uL (130-400) 09/24/23 05:33
Sodium 131 mmol/L (135-145) L 09/24/23 05:33
Potassium 3.9 mmol/L (3.5-5.1) 09/24/23 05:33
Chloride 99 mmol/L (98-107) 09/24/23 05:33
Carbon Dioxide 25 mmol/L (22-30) 09/24/23 05:33
BUN 13 mg/dl (7-17) 09/24/23 05:33
Creatinine 0.6 mg/dL (0.6-1.0) 09/24/23 05:33
eGFR > 60.00 09/24/23 05:33
Glucose 97 mg/dl (70-99) 09/24/23 05:33
Calcium 10.0 mg/dl (8.4-10.2) 09/24/23 05:33
Phosphorus 3.5 mg/dl (2.5-4.5) 09/24/23 01:01
Albumin 4.8 g/dl (3.5-5.0) 09/23/23 17:12
CXR:
IMPRESSION:
1. No radiographic evidence for acute cardiopulmonary disease.
2. Mild cardiomegaly.
CT head:
IMPRESSION:
No acute intracranial abnormality noted. No acute intracranial hemorrhage. Chronic microvascular white matter ischemic disease. Tiny chronic right anterior limb internal capsule lacunar infarct.
Echo:
CONCLUSIONS
Normal LV size and function with no regional wall motion abnormalities.
LVEF is 65 to 70% but Capps's method of test.
Mild concentric LVH.
Stage I diastolic dysfunction suggestive of abnormal relaxation.
Normal right ventricular size and function.
No significant valvular disease.
No prior study available for comparison.
Physical Exam
General: Awake, Alert, Oriented, No Distress and Nontoxic
HEENT: EOMI, Anicteric and No JVD
Respiratory: Clear, Normal Excursion and Nonlabored Respirations
Cardiac: S1/S2 and Regular Rate/Rhythm
Breast: Deferred by me
Abdomen: Soft, Nontender and Nondistended
Musculoskeletal: No Cyanosis and No Edema
Skin: No Rash
Neuro: Nonfocal/Grossly Intact
Psych: Appropriate
Data Reviewed
-
Radiology: Report Reviewed by me
Labs: Labs Reviewed by me and Discussed with Family
Assessment/Plan
-
IMP:
Hypertensive Emergency
Acute TME
mild Hypercalcemia
Mild chronic Hyponatremia
Weight Loss
Anxiety / Insomnia
CT head show old lacunar infarct
Plan:
A/w HTN and increased confusion , CT head show old lacunar infarct
HTN emergency vs urgency-off nicardipine this am
seem to have baseline postural hypotension based on history
would check orthostatics later today
I would observe her on home meds prior adding new medication
suggest permissive HTN upto 140s seem reasonable, if needed low dose procardia is fine -hold for now
TSH is normal , cr normal 0.6, echo with mild LVH
consider ARR and renal duplex if BPs remain high
UA with pyuria with out dysuria
mild hypercalcemia normal when corrected for alb
chr hyponatremia, encourage solute intake
anxiolytics to be continued
spoke with PCP DR Mccall on phone and he is concerned about wt loss and increased confusion and thinks there could be occult process going on, he wants to do CT abd which is ordered out pt-could consider to complete here, reportedly old US over
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
d/w and nursing
--- NOTE | 2023-09-24 12:31 | CM ---
Addendum entered by Joe Suresh 09/24/23 15:56:
PT and OT evaluations noted - acute vs SNF level of care recommended. Pt preferred acute rehab. A referral to [facility] made.
Original Note:
CM following re: discharge planning.
Discussed in Rounds, reviewed pt's chart, met with pt.
Pt is a 78 year old female, admitted with primary dx of hypertensive Emergency.
Pt reports she lives with and a son in a 2SH, 2 steps to enter, has 2 supportive children. 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 No DME, VN or SNF history. Pt expressed her desire to return [place]ak home at discharge with family.
PT and OT valuations pending
PCP: Melvin Valencia
Pharmacy: [facility]
D/C plan: home with anticipated no needs.
CM will follow with discharge plan updates as hospitalization progresses
[2023-09-24] MEDS: ZESTRIL 40 MG PO (12:41)
--- NOTE | 2023-09-24 14:53 | W.PN.HOSP.TC ---
Today's Communication/Plan
-
transition to PO antihypertensive regimen
MR Brain
Assessment / Plan
Assessment / Plan
Physical Exam
General: Other (78y F in no acute distress.)
HEENT: Moist mucous membranes, PERRLA and Other (Neck supple.)
Respiratory: Clear; No Wheezes, Rales or Rhonchi
Cardiac: S1/S2 and Regular Rhythm; No Murmur
GI: Soft, Non Tender, Non Distended and Normal Bowel Sounds
Musculoskeletal: No Clubbing, No Cyanosis and No Edema
Neuro: AO x 3 and Nonfocal/grossly intact
Psych: No Anxious or Depressed
A/P: Patient is a 78y F with PMH significant for hypertension who presents to ED complaining of headache, confused and blurry vision.
Hypertensive Emergency
Baseline postural hypotension
- Transition to PO regimen
-Off nicardipine ggt
-Nephro consulted
-DG to telemetry if BP stable
-Resume Home antihypertensives; may add nifedpine as needed
-trops negative
-renal dopplers if resistant hypertension
Acute TME secondary to hypertensive emergency v other neurological issue v ongoing dementia
-MRI Brain ordered
-Control BP
-Has been complaining of headache yesterday
-ASA
-F/u Lipid panel, a1c
Hypercalcemia
- Mild hypercalcemia. Check iPTH and follow-up results.
Mild Hyponatremia
- Follow for changes. Hesitate to initiate fluid restriction at this time given reportedly poor PO intake.
- monitor
Weight Loss
- Reported 50 lbs weight loss in the past 1 1/2 years.
- Patient reportedly up to date with routine screenings (mammo, colonoscopy, etc).
- CT A/P ordered as an outpatient for further evaluation.
Anxiety / Insomnia
- Continue duloxetine.
- Hold marijuana during inpatient stay - ? related to confusion issues, etc given coincidental timing?
DVT Prophylaxis: HSQ
Code Status: Full
Anticipated Discharge: Within 24 hours
Subjective/Interval History
-
Date of Service: September 24, 2023
AAOx2
Objective Data
-
Labs:
Laboratory Results
09/24/23
05:33
WBC 8.6
Hgb 13.3
Hct 37.1
Plt Count 236
Sodium 131 L
Potassium 3.9
Chloride 99
Carbon Dioxide 25
BUN 13
Creatinine 0.6
Glucose 97
Calcium 10.0
Vital Signs:
Vital Signs
Temp Pulse Resp BP Pulse Ox
97.9 F 65 14 168/84 97
09/24/23 12:25 09/24/23 14:15 09/24/23 14:15 09/24/23 14:00 09/24/23 14:15
I&O
09/23/23 09/24/23 09/25/23
06:59 06:59 06:59
Intake Total 125.0 / 125.0 567.5 / 567.5
Output Total 250 / 250 1450 / 1450
Balance -125.0 / -125.0 -882.5 / -882.5
Review of Systems
-
History Source: Patient
All other systems: Not reviewed unless documented
Data Reviewed
-
Diagnostic Radiology: Image personally visualized and interpreted and Report Reviewed by me
Labs: Labs Reviewed by me
[2023-09-24 14:54] LABS: Troponin I < 0.012 ng/ml
[2023-09-24] MEDS: HEPARIN 5000 UNITS SC ×2 (15:38→23:00)
--- NOTE | 2023-09-24 17:00 | PTCARENOTE ---
Pt. transported via bed to MRI and back to rm [id number] @ 1630. Assisted w repositioning. Pt. eating dinner tray. Family remains @ bedside. Call monte in reach; bed alarm active.
--- NOTE | 2023-09-24 20:00 | PTCARENOTE ---
Rec'd pt rsting in bed, family at bedside, pt oriented to person, needs reorientation to place and time, has difficulty with finding her words, tearful at times, still w/ blurred vision, bed alarm on, SR/ SB w/ 1' av block, bp 142/97, + pulses, no
edema, skin warm/dry, RA, lungs clear , sat 97, + bowel sounds, no bm, abd soft/nontender, no n/v,uday fluids, HNV yet this shift
[2023-09-24] MEDS: PROCARDIA XL (EXTENDED RELEASE) 30 MG PO (21:09)
--- NOTE | 2023-09-24 21:10 | PTCARENOTE ---
bp 178/102- 2200 dose of procardia given
--- NOTE | 2023-09-24 22:56 | PTCARENOTE ---
trying to climb oob, confused, assisted to bsc , bp 118/74 when on commode, unable to void, back to bed, bp-137/76 ; CHG bath done, linens changed, xanax 0.5 mg po given for sleep
--- NOTE | 2023-09-24 23:26 | PTCARENOTE ---
no changes in assessment, very confused, forgetful, bed alarm on
[2023-09-25] VITALS (40 sets, daily range): BP systolic 70–187; BP diastolic 45–138; PULSE 66–70; BMI 20.4
--- NOTE | 2023-09-25 00:05 | PTCARENOTE ---
trying to climb oob, disoriented, rambling conversation, bilat mitts applied
--- NOTE | 2023-09-25 00:19 | PTCARENOTE ---
mitts off, by pt, bilat wrist restraints applied, ativan 0.5mg iv given per order
[2023-09-25] MEDS: ATIVAN 0.5 MG IV (00:25)
[2023-09-25] MEDS: NSS (PRESERVATIVE FREE) 0.25 ML IV (00:26)
[2023-09-25] MEDS: PRECEDEX 100 IV (00:56)
--- NOTE | 2023-09-25 01:03 | PTCARENOTE ---
pt trying to kick and put legs over side rail, cursing, rambling, confused, B Elder, print and pattern designer aware, precedex gtt started per order
--- NOTE | 2023-09-25 02:00 | PTCARENOTE ---
cont to be agitated, restless, cursing, precedex titrated per order
[2023-09-25 03:34] LABS: Hematocrit 32.8 % (37.0-47.0); Hemoglobin 12.2 g/dL (12.0-16.0); Mean Corp Hgb Conc. 37.2 g/dL (33.0-37.0); Mean Corpuscular Hgb 32.9 pg (27.0-31.0); Mean Corpuscular Volume 88.4 fL (81.0-99.0); Mean Platelet Volume 8.4 fL (7.4-10.4); Platelet Count 241 10^3/uL (130-400); Red Blood Cell Count 3.71 10^6/uL (4.20-5.40); Red Cell Dist. Width 13.2 % (11.5-14.5); White Blood Cell Count 7.9 10^3/uL (4.8-10.8)
[2023-09-25] MEDS: NSS 250 IV (03:43)
--- NOTE | 2023-09-25 03:44 | PTCARENOTE ---
Addendum entered by Pauline Rogers, RN 09/25/23 03:46:
RASS -2, lungs unch, DEVIN
Original Note:
precedex gtt weaned for bp,bladder scanned for 137 ml,despite decr gtt bp cont to be low,Bárbara Ocampo Np aware of bp & bladder scan result, precedex gtt now at 0.2 sebastián, 250 ml nss bolus hung over 30 min per order
[2023-09-25 03:53] LABS: ALT (SGPT) 17 U/L (0-35); AST (SGOT) 30 U/L (14-36); Albumin 2.8 g/dl (3.5-5.0); Alkaline Phosphatase 70 U/L (38-126); Blood Urea Nitrogen 20 mg/dl (7-17); Calcium 9.6 mg/dl (8.4-10.2); Carbon Dioxide 21 mmol/L (22-30); Chloride 99 mmol/L (98-107); Estimated Creatinine Clearance 41 ml/min; Glucose 130 mg/dl (70-99); Potassium 3.8 mmol/L (3.5-5.1); Sodium 129 mmol/L (135-145); Total Bilirubin 0.8 mg/dl (0.2-1.3); Total Protein 6.4 g/dl (6.3-8.2); eGFR > 60.00
--- NOTE | 2023-09-25 04:51 | PTCARENOTE ---
precedex off for bp 84/52. RASS -2
[2023-09-25] MEDS: NEO-SYNEPHRINE 250 IV (05:08)
--- NOTE | 2023-09-25 05:09 | PTCARENOTE ---
B ANSON Ocampo aware of bp, evie gtt started- to titrate keeping map > 65- see flow sheet for titrations
--- NOTE | 2023-09-25 06:06 | PTCARENOTE ---
Addendum entered by Pauline Rogers RN 09/25/23 06:07:
Bárbara Ocampo NP aware that pt did not void this shift- was bladder scanned for 93 ml
Original Note:
bp 152/56, evie decr to 20 sebastián, sleeping but arousable
--- NOTE | 2023-09-25 07:15 | W.PN.INTV ---
Today's Communication / Plan
Recommendations
Off cardene, Doing well in terms of BP
Further adjustments per team
Confusion likely delirium, add PRN haldol and resume home meds
Mitts/supportive care, this was reviewed in detail with on rounds
Can transfer to [facility] for further management. We will sign off upon transfer
Assessment
-
Patient is a 78-year-old female with previous history of hypertension, gout, sarcoma status post excision, GERD presenting to ER with confusion and headaches. She has been having intermittent and brief episodes of confusion or disorientation
over the past 3 months. Her blood pressure at home reportedly greater than 200 systolic. In ER, this was confirmed and she was given doses of hydralazine and labetalol without resolution. She is placed on Cardene drip. Admitted to ICU.
Hypertensive Emergency
Acute TME secondary to the above
Mild hypercalcemia
Weight Loss - reported 50 lbs weight loss in the past 1 1/2 years
Acute delirium
Conditions present MANAGER HRIS
Hypertension
Gout
Sarcoma
GERD
Pre-Diabetes
Anxiety / Insomnia
O/A s/p R TKA Dr. 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
Sarcoma Excision (Arm)
Medical THC use
Plan
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
Denies pain at this time.
Has insomnia, never had sleep study
She now has signs suggestive of acute delirium (abrupt change in MS in past 24 hours)
Pain/sedation: resume home SSRI, add PRN haldol
Tried on precedex did not tolerate due to bradycardia
RASS goals: 0
Hemodynamically stable, not requiring pressors.
Cardiac history reviewed -- HTN, off cardene
Further adjustments on BP meds per team
Prior ECHO reviewed indicating normal function
Monitor on telemetry
Oxygen needs: stable on RA
Prior history of lung disease: none
Supplemental O2 as indicated to maintain sats > 89%
CXR/CT reviewed indicating NAD
Advance diet as tolerated
Floral Designer Salesperson recommendations
Aspiration precautions, HOB > 30 degrees
Speech therapy eval can be considered if at elevated risk
GI prophylaxis if indicated for mechanical ventilation >48 hours, prior history of GERD, stress ulcer formation in the critically ill
Creat at baseline, no history of renal disease
Void trials
Follow urine output, critical I/Os
Replete electrolytes as needed
Renal following for HTN management
No signs/symptoms suspicious for infectious etiology at this time
Observe off antibiotics for now
Follow fever trend, WBC count
CBC stable, no signs of bleeding or coagulopathy.
DVT prophylaxis as assessed based on risk, including mechanical SCDs
Can transfuse if indicated for Hb <7, plt < 10
INR WNL
No prior h/o diabetes or thyroid disease
Monitor accuchecks PRN/SS coverage if needed
TSH WNL
Diagnostic Data
Chest X-Ray: 09/24/23- 1. No radiographic evidence for acute cardiopulmonary disease.
2. Mild cardiomegaly.
CT Scan: HEAD 09/23/23- No acute intracranial abnormality noted. No acute intracranial hemorrhage. Chronic microvascular white matter ischemic disease. Tiny chronic right anterior limb internal capsule lacunar infarct.
Echo: 09/24/23- Normal LV size and function with no regional wall motion abnormalities. LVEF is 65 to 70% but Capps's method of test. Mild concentric LVH. Stage I diastolic dysfunction suggestive of abnormal relaxation.
Normal right ventricular size and function. No significant valvular disease. No prior study available for comparison.
PFT's:
Reports and relevant images were personally reviewed.
-----
Critical Care time 35 mins -- The patient is admitted for acute critical illness for the treatment of vital organ failure and/or prevention of further life-threatening conditions. Total care includes time spent in review of history, physical exam,
medications, hemodynamic/ventilator parameters, laboratory data, imaging and discussion with house staff, pharmacy, respiratory therapy, evening anchor, and nursing.
Subjective Dataa
Subjective Data
Date of Service:
Date of Service: September 25, 2023
Chief Complaint: Campus Security Officer Follow Up
Subjective:
Events ON noted, more confused/delirious
Tried on precedex but could not tolerate due to bradycardia
at bedside
Objective Data
Data Reviewed
Vital Signs / I&O / Oxygen:
Vital Signs
Temp Pulse Resp BP Pulse Ox
97.7 F 55 15 121/58 100
09/25/23 03:46 09/25/23 06:30 09/25/23 06:30 09/25/23 06:30 09/25/23 06:30
Intake and Output
09/24/23 09/25/23 09/26/23
06:59 06:59 06:59
Intake Total 125.0 / 125.0 1308.5 / 1308.5
Output Total 250 / 250 1450 / 1450
Balance -125.0 / -125.0 -141.5 / -141.5
SaO2 100
Nasal Cannula flow liters per 2
minute
Physical Exam
General: Comfortable, Poor Appetite and Other (NAD, confused)
HEENT: Normocephalic, Anicteric and Moist Mucous Membranes
Cardiovascular: S1-S2 and Regular Rhythm
Respiratory: Clear and Non-Labored Respirations
GI: Soft, Non Distended and Non Tender
Neurology: Awake and Other (confused, answering but not appropriately at times)
Skin: Warm, Dry and Good Color
Labs/Micro/Reports
Lab Data
09/25/23 03:17
09/25/23 03:17
--- NOTE | 2023-09-25 08:13 | PN.CDI ---
CDI
- -
CDI:
Physician Documentation Request
Admit Date: 09/23/23 22:45
Dear Doctor Millie,
Patient admitted with hypertensive emergency.
09/23 Nutrition note, 'Compared to UBW of 164 lbs pt with a 50 lb (30%) Weight loss in 1 1/2 years.
With <75% Estimated needs in > 1 month and observed muscle and fat wasting pt meets AND/ASPEN criteria for moderate protein calorie malnutrition of chronic illness.
Please provide in your note the diagnosis associated with the above documentation and your assessment:
Moderate protein calorie malnutrition
Mild protein calorie malnutrition
Other
[place] Criteria ([facility] Hospitalist 2017)
2 or more criteria must be present for either
non severe or severe malnutrition
Note that the criteria differs related to the
presence of an acute or chronic illness
Chronic Illness
Energy Intake Non Severe: <75% for >1 month
Severe: <75% for >1 month
Weight Loss Non Severe: 5% over 1 month
7.5% over 3 months
10% over 6 months
20% over 1 year
Severe: >5% over 1 month
>7.5% over 3 months
>10% over 6 months
>20% over 1 year
Body Fat Non Severe: Mild Loss
Severe: Severe Loss
Muscle Mass Non Severe: Mild Loss
Severe: Severe Loss
Fluid Accumulation Non Severe: Mild Accumulation
Severe: Moderate to severe
accumulation
Reduced Regasification Plant Operator Strength Non Severe: N/A
Severe: Measurably reduced
Use of terms such as suspected, likely, concern for, or probable (associated with a specific diagnosis that is being evaluated, monitored, or treated as if it exists) are acceptable and can be coded in the inpatient setting, when documented at the
time of discharge.
Thank you,
Katarina VALDEZN,RN,CCDS
CDI Specialist
Available via [facility] text
Please use your independent medical judgment in providing your response.
[2023-09-25 09:23] LABS: Glycohemoglobin (HgbA1c) 5.1 % (4.0-5.6)
[2023-09-25] MEDS: HEPARIN 5000 UNITS SC (09:47)
[2023-09-25] MEDS: TENORMIN 100 MG PO ×2 (11:10→20:23)
[2023-09-25] MEDS: CYMBALTA DELAYED RELEASE 30 MG PO (11:10)
[2023-09-25] MEDS: PROCARDIA XL (EXTENDED RELEASE) PO (11:11)
[2023-09-25] MEDS: LOW STRENGTH ASPIRIN 81 MG PO (11:11)
[2023-09-25] MEDS: ZESTRIL 40 MG PO (11:11)
--- NOTE | 2023-09-25 11:23 | CON.NEURO ---
Neuro Assessment/Plan
Assessment
Abrupt/subacute onset of cognitive changes
most likely due to underlying Alzheimer's dementia
unclear if variable BPs are suggestive of an atypical Parkinsonism
Plan
Check blood work for potentially treatable etiologies
Outpatient neuropsychological evaluation would be appropriate
Consideration of the use of medications for sedation if patient presents as aggressive would be appropriate
Would consider the use of memantine as outpatient
No clear indication for additional neuroimaging or EEG at this time
We will follow as needed.
Consultation
Order
Date of Consultation: 09/25/23
Requesting Provider: Hospitalist
Reason for Consult: Cognitive decline
Subjective/Objective
Subjective Data
Date of Service: September 25, 2023
Right-Handed
According to medical records, patient has reportedly been having intermittent / brief episodes of confusion or disorientation.
On the day of admission, she was attempting to use a flashlight to change the channel on the television patient's checked the patient's blood pressure and found it to be significantly elevated.
�Minor memory issues in the past,� according to the patient's who is the primary historian as the patient herself is unable to provide her own medical history.
The patient was described as having significant cognitive issues which were evaluated by her primary care office which was described by the patient's as abnormal and suggesting a deficit (in March 2023).
Lack of recall of �s schedule started 2 weeks ago, also the patient stopped using a television remote in the last 2 weeks. Of note is that the patient's television and access have not changed in last year.
Patient actually became unable to use TV remote x 2 weeks
Driving: stopped in past year due to �blurred vision� without Director Of Primary Care evaluation
Hobbies: reading newspapers, although the patient reads 1 newspaper per week
Finance maintenance: never controlled
Cooking: stopped 6 months ago
FPC insomnia failed OTC medication (Melatonin)
Patient has been noted to have very poor appetite and has lost about 50 lbs in the past year and a half.
Patient was markedly confused immediately prior to hospital presentation and persistently during hospitalization leading to this consult.
Objective Data
Vital Signs
Temp Pulse Resp BP Pulse Ox
36.6 C 59 15 160/78 100
09/25/23 08:13 09/25/23 11:11 09/25/23 06:30 09/25/23 11:11 09/25/23 06:30
Lab Results
09/25/23 03:17
09/25/23 03:17
PT 13.8 Sec (11.4-14.6) 09/24/23 01:01
INR 1.08 09/24/23 01:01
APTT 30.9 Sec (23.4-35.0) 09/24/23 01:01
Sodium 129 mmol/L (135-145) L 09/25/23 03:17
Potassium 3.8 mmol/L (3.5-5.1) 09/25/23 03:17
BUN 20 mg/dl (7-17) H 09/25/23 03:17
Glucose 130 mg/dl (70-99) H 09/25/23 03:17
Calcium 9.6 mg/dl (8.4-10.2) 09/25/23 03:17
Phosphorus 3.5 mg/dl (2.5-4.5) 09/24/23 01:01
LDL Cholesterol, Calc 103 mg/dl 09/24/23 05:33
Patient Allergies
ciprofloxacin [From Cipro] Allergy (Verified 06/19/22 06:04)
severe Itching
erythromycin base Allergy (Verified 06/19/22 06:04)
severe Itching
hydrocodone Allergy (Verified 06/19/22 06:04)
severe Itching
oxycodone Allergy (Verified 06/19/22 06:04)
severe Itching
shellfish derived Allergy (Verified 06/19/22 06:04)
severe Itching
Review of Systems
-
Unable to obtain full review of systems at this time due to: Dementia
History Source: Patient
All other systems: Reviewed and negative
Physical Exam
-
General: No Apparent Distress, Appears Stated Age and Restrained (With soft restraints in bilateral hands)
Eyes: OU Absent Papilledema, Round OU, [place] Conjunctivae and No Ptosis
HEENT: Anicteric and Moist Mucous Membranes
Neck: Full Range of Motion
Respiratory: No Dyspnea
Cardiac: No JVD
GI: Non-distended
Skin: Unremarkable
Extremities: No Clubbing, No Cyanosis and No Edema
Psych: Negative Intact Judgement/Insight
Extended Neurological Exam
Mood & Affect: Mood Unremarkable and Affect Unremarkable
Attention Span & Concentration: Awake, Alert, Interactive and Unable to Perform 2 Step Request
Memory: Reduced (For location which she indicates is [place] and that the specific location is a [place], unable to correctly indicate year), Unable to Recall Personal History and Other (Indicates that her age is September)
Tremor: Hand Tremor Absent and Head Tremor Absent
Speech: Quality Unremarkable and Quantity Unremarkable
Cranial Nerve II: Left Eye: Pupillary Reactivity Unremarkable, Pupillary Size Unremarkable and Visual Bloom Intact
Cranial Nerve II: Right Eye: Pupillary Reactivity Unremarkable, Pupillary Size Unremarkable and Visual Bloom Intact
Cranial Nerves III, IV, : Extraocular Movement: Extraocular Movement Full in all Directions
Cranial Nerve VII: Facial Symmetry: Normal Facial Symmetry
Cranial Nerve VIII: Hearing: Unremarkable Hearing to Normal Conversational Volume
Cranial Nerves IX, X: Palate Movement: Palate Elevation Symmetric
Cranial Nerve XI: Shoulder Shrug: Unremarkable
Cranial Nerve XII: Tongue Protusion: Midline
Muscle Strength, Overall: Full Throughout
Muscle Bulk & Tone: Bulk Unremarkable and Tone Unremarkable
Pronator Drift: No Drift in Upper Extremities
Deep Tendon Reflexes: Trace Throughout
Touch Sensation: Unremarkable
Coordination: [id number] Testing Unremarkable
Babinski Sign: Absent Bilaterally
Data Reviewed
-
CT Head: Report Reviewed
MRI Head: Report Reviewed and Image Reviewed
Labs: Ordered and Report Reviewed
Lipid Profile: Report Reviewed
Reviewed with: Physician, Nurse, Patient and Family
Old Records: Summarized
Medications
-
Active Medications
Generic Name Dose Route Start Last Admin
Trade Name Freq PRN Reason Stop Dose Admin
Acetaminophen 650 mg 09/24/23 00:35
Acetaminophen 325 Mg Tablet PO 10/22/23 00:34
Q4HPRN PRN
Mild Pain / Temp > 101
Aspirin 81 mg 09/24/23 08:00 09/25/23 11:11
Aspirin 81 Mg Chewable Tablet PO 10/22/23 07:59 81 mg
DAILY HOWARD Administration
Atenolol 100 mg 09/24/23 08:00 09/25/23 11:10
Atenolol 50 Mg Tablet PO 10/22/23 07:59 100 mg
BID HOWARD Administration
Duloxetine HCl 30 mg 09/24/23 08:00 09/25/23 11:10
Duloxetine Delayed Release 30 Mg Capsule PO 10/22/23 07:59 30 mg
DAILY HOWARD Administration
Haloperidol Lactate 0.5 mg 09/25/23 10:56
Haloperidol 5 Mg/Ml 1 Ml Vial IV 10/23/23 10:55
Q4HPRN PRN
agitation
Heparin Sodium 5,000 units 09/24/23 16:00 09/25/23 09:47
Heparin 5,000 Units/Ml 1 Ml Vial SC 10/22/23 15:59 5,000 units
Q8 HOWARD Administration
Hydralazine HCl 10 mg 09/24/23 11:23
Hydralazine 20 Mg/Ml Vial IV 10/22/23 11:22
Q4HPRN PRN
SBP>180 and DBP >110
Lisinopril 40 mg 09/24/23 13:00 09/25/23 11:11
Lisinopril 20 Mg Tablet PO 10/22/23 12:59 40 mg
DAILY HOWARD Administration
Nifedipine 30 mg 09/24/23 22:00 09/25/23 11:11
Nifedipine 30 Mg Extended Release Tablet PO 10/22/23 21:59 Not Given
DAILY HOWARD
Sodium Chloride 0 flush 09/25/23 01:00
Sodium Chloride 0.9% (Flush) Syringe IV 10/23/23 00:59
PER PROTOCOL HOWARD
Home Medications
�Medication �Instructions �Recorded
allopurinol 100 mg tablet 100 mg PO DAILY Gout 05/25/22
alprazolam 0.25 mg tablet 0.25 mg PO DAILY PRN anxiety 05/25/22
atenolol 100 mg tablet 100 mg PO BID Blood pressure 05/25/22
lisinopril 40 mg tablet 40 mg PO DAILY Blood pressure 05/25/22
duloxetine 30 mg capsule,delayed 30 mg PO DAILY Mental 09/23/23
release Health/Anxiety
ezetimibe 10 mg tablet 10 mg PO DAILY High Cholesterol 09/23/23
--- NOTE | 2023-09-25 11:31 | W.PN.NEPH.PH ---
Today's Communication / Plan
-
see plan
Assessment/Plan
-
IMP:
Hypertensive Emergency
Acute TME
mild Hypercalcemia
Mild chronic Hyponatremia
Weight Loss
Anxiety / Insomnia
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
Plan:
A/w HTN and increased confusion , MRI show old lacunar infarcts
HTN emergency vs urgency-hypotensive last night with procardia and sedation, off tolu gtt this am
would cont home meds at this time and not add any new meds
seem to have baseline postural hypotension based on history
would check orthostatics when possible
concerned that she may have underlying mild dementia with old lacunar infarcts
suggest permissive HTN upto 140-150s seem reasonable
TSH is normal , echo with mild LVH
cr slightly up with azotemia-will add gentle IVF
pending ARR and renal duplex
UA with pyuria with out dysuria
mild hypercalcemia corrected 10.6, pTH pending, avoid ek and vit D meds.
chr hyponatremia, encourage solute intake , would start FR 48 ounces/day, check U osmo
I believe likely benefits from anxiolytics
09/[address] Mccall on phone and he is concerned about wt loss and increased confusion and thinks there could be occult process going on, he wants to do CT abd which is ordered out pt-could consider to complete here, reportedly old US
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
d/w , primary and nursing
-
-
Date of Service: September 25, 2023
CC / HPI / ROS
-
Chief Complaint:
HTN, hyponatremia
History of Present Illness:
BP were increasing last night, s/p procardia and sedation BP low. started on Tolu for few hrs.
Off since this am, now BPs are high at 170s
Pt was very agitated last night, needed to be sedated, now off. also wrist restraints
cr at 0.9, BUN 20
Review of Systems:
sleeping during visit, no fever
Labs
-
Labs:
WBC 7.9 10^3/uL (4.8-10.8) 09/25/23 03:17
RBC 3.71 10^6/uL (4.20-5.40) L 09/25/23 03:17
Hgb 12.2 g/dL (12.0-16.0) 09/25/23 03:17
Hct 32.8 % (37.0-47.0) L 09/25/23 03:17
Plt Count 241 10^3/uL (130-400) 09/25/23 03:17
Sodium 129 mmol/L (135-145) L 09/25/23 03:17
Potassium 3.8 mmol/L (3.5-5.1) 09/25/23 03:17
Chloride 99 mmol/L (98-107) 09/25/23 03:17
Carbon Dioxide 21 mmol/L (22-30) L 09/25/23 03:17
BUN 20 mg/dl (7-17) H 09/25/23 03:17
Creatinine 0.9 mg/dL (0.6-1.0) 09/25/23 03:17
eGFR > 60.00 09/25/23 03:17
Glucose 130 mg/dl (70-99) H 09/25/23 03:17
Calcium 9.6 mg/dl (8.4-10.2) 09/25/23 03:17
Phosphorus 3.5 mg/dl (2.5-4.5) 09/24/23 01:01
Albumin 2.8 g/dl (3.5-5.0) L D 09/25/23 03:17
Physical Exam
-
Vital Signs:
Vital Signs
Temp Pulse Resp BP Pulse Ox
97.8 F 59 15 160/78 100
09/25/23 08:13 09/25/23 11:11 09/25/23 06:30 09/25/23 11:11 09/25/23 06:30
Cardiovascular:: Regular rate and rhythm
Respiratory:: Bilateral: CTA
Lung Excursion:: Normal
Abdomen:: Nontender and Soft
Extremity Edema:: None: Bilateral:
Goodman Catheter: No
[2023-09-25] MEDS: NSS 500 IV (13:51)
--- NOTE | 2023-09-25 14:02 | CM ---
CM following re: discharge planning.
Reviewed pt's chart, met with pt and pt's at bedside.
CM spoke to [facility] acute occupational therapist rehab manager and she confirmed pt is not eligible for admission to acute rehab and a referral is denied.
CM discussed it with the pt and her . pt's stated he feels that pt will be able to return back home and both pt and her strongly declined SNF level of care. PT and OT to re-evaluate the pt.
D/C plan: per pt and her , home with most likely no needs or VN services if recommended by PT.
CM will follow with discharge plan updates as hospitalization progresses
--- NOTE | 2023-09-25 14:10 | PTCARENOTE ---
09/24- Patient transferred and oriented to unit without issue. AAOX3, Calm/Cooperative, Skin CDI. Patient and deny any current requests or needs. mentioned having Marijuana Gummies for sleep. Advised these are not currently
ordered, so like any other Home med that's not ordered, they should go home. If that changes, we will advise him. He verbalized understanding and stated he will take them home.
--- NOTE | 2023-09-25 14:25 | PTCARENOTE ---
pt in am drowsy and restless, she was restrained jose wrist and then DC at 1000 , NSR on monitor , BP 132/58 , she was on phenylephrine at 20mcg at change of shift and then DC at 0830 , her map 90s , she then became hypertensive at 1000 and her
antihypertensives were given excluding her Procardia XL , she was very confused this am ,her said this was out of the ordinary , she was evaluated by hospitalist and neurologist , at 1100 she was more alert and oriented , she then was oob to
chair for 1.5 hours , she is now more conversive and oriented , she was written for med/Surg status and was transferred out to room 417 , report given to receiving RN , at bedside and aware of plan of care
--- NOTE | 2023-09-25 14:58 | W.PN.HOSP.TC ---
Today's Communication/Plan
-
Control Agitation
BP control
Assessment / Plan
Assessment / Plan
Physical Exam
General: Other (78y F in no acute distress.)
HEENT: Moist mucous membranes, PERRLA and Other (Neck supple.)
Respiratory: Clear; No Wheezes, Rales or Rhonchi
Cardiac: S1/S2 and Regular Rhythm; No Murmur
GI: Soft, Non Tender, Non Distended and Normal Bowel Sounds
Musculoskeletal: No Clubbing, No Cyanosis and No Edema
Neuro: AO x 3 and Nonfocal/grossly intact
Psych: No Anxious or Depressed
A/P: Patient is a 78y F with PMH significant for hypertension who presents to ED complaining of headache, confused and blurry vision.
Hypertensive Emergency
Baseline postural hypotension
- Transition to PO regimen
-Off nicardipine ggt
-Nephro consulted
-DG to telemetry if BP stable
-Resume Home antihypertensives; may add nifedpine as needed
-trops negative
-renal dopplers if resistant hypertension
Acute TME secondary to hypertensive emergency v other neurological issue v ongoing dementia
� Favoring Alzheimer's dementia versus Parkinson's dementia
-No acute pathology on MRI brain
-Control BP
-Has been complaining of headache yesterday
-ASA
�Neurology consulted, follow-up neuropsychiatrist outpatient
�Haldol as needed
� No clear indication for additional neuroimaging or EEG at this time
Hypercalcemia
- Mild hypercalcemia. Check iPTH and follow-up results.
Mild Hyponatremia
- Follow for changes. Hesitate to initiate fluid restriction at this time given reportedly poor PO intake.
- monitor
� Free water restriction for 8 ounces
Weight Loss
- Reported 50 lbs weight loss in the past 1 1/2 years.
- Patient reportedly up to date with routine screenings (mammo, colonoscopy, etc).
- CT A/P ordered as an outpatient for further evaluation. No obvious acute need at this time
Anxiety / Insomnia
- Continue duloxetine.
- Hold marijuana during inpatient stay - ? related to confusion issues, etc given coincidental timing?
DVT Prophylaxis: HSQ
Code Status: Full
Anticipated Discharge: Within 24 hours
Subjective/Interval History
-
Date of Service: September 25, 2023
Agitated, requiring restraints
Objective Data
-
Labs:
Laboratory Results
09/25/23
03:17
WBC 7.9
Hgb 12.2
Hct 32.8 L
Plt Count 241
Sodium 129 L
Potassium 3.8
Chloride 99
Carbon Dioxide 21 L
BUN 20 H
Creatinine 0.9
Glucose 130 H
Calcium 9.6
Total Bilirubin 0.8
AST 30
ALT 17
Alkaline Phosphatase 70
Vital Signs:
Vital Signs
Temp Pulse Resp BP Pulse Ox
97.3 F 65 17 165/85 100
09/25/23 11:46 09/25/23 12:42 09/25/23 12:42 09/25/23 13:22 09/25/23 12:02
I&O
09/24/23 09/25/23 09/26/23
06:59 06:59 06:59
Intake Total 125.0 / 125.0 1308.5 / 1314.5
Output Total 250 / 250 1450 / 1450
Balance -125.0 / -125.0 -141.5 / -135.5
Review of Systems
-
Unable to obtain full review of systems at this time due to: Acuity
History Source: Patient
Data Reviewed
-
Diagnostic Radiology: Image personally visualized and interpreted and Report Reviewed by me
Labs: Labs Reviewed by me
[2023-09-25 15:12] LABS: Intact PTH 34.2 pg/ml (13.6-85.8)
[2023-09-25 15:58] LABS: Folate > 20.0 ng/ml (2.76-20); Vitamin B12 598 pg/ml (239-931)
[2023-09-25] MEDS: LOVENOX 40 MG SC (17:04)
[2023-09-25 17:17] LABS: Osmolality Urine 506 mOsm/kg (300-900)
[2023-09-25 17:20] LABS: Urine Sodium 28 mmol/L (30-90)
[2023-09-26 06:00] VITALS: BMI 21.1
[2023-09-26 07:15] VITALS: BP 169/86
[2023-09-26 07:19] LABS: Hematocrit 34.6 % (37.0-47.0); Hemoglobin 12.6 g/dL (12.0-16.0); Mean Corp Hgb Conc. 36.4 g/dL (33.0-37.0); Mean Corpuscular Hgb 33.8 pg (27.0-31.0); Mean Corpuscular Volume 92.8 fL (81.0-99.0); Mean Platelet Volume 8.8 fL (7.4-10.4); Platelet Count 244 10^3/uL (130-400); Red Blood Cell Count 3.73 10^6/uL (4.20-5.40); White Blood Cell Count 6.7 10^3/uL (4.8-10.8)
[2023-09-26 08:05] LABS: ALT (SGPT) 18 U/L (0-35); AST (SGOT) 33 U/L (14-36); Alkaline Phosphatase 73 U/L (38-126); Blood Urea Nitrogen 25 mg/dl (7-17); Calcium 9.5 mg/dl (8.4-10.2); Carbon Dioxide 22 mmol/L (22-30); Chloride 99 mmol/L (98-107); Estimated Creatinine Clearance 47 ml/min; Glucose 83 mg/dl (70-99); Potassium 3.7 mmol/L (3.5-5.1); Sodium 130 mmol/L (135-145); Total Bilirubin 0.6 mg/dl (0.2-1.3); Total Protein 6.3 g/dl (6.3-8.2); eGFR > 60.00
[2023-09-26] MEDS: CYMBALTA DELAYED RELEASE 30 MG PO (08:36)
[2023-09-26] MEDS: PROCARDIA XL (EXTENDED RELEASE) 30 MG PO (08:36)
[2023-09-26] MEDS: TENORMIN 100 MG PO (08:36)
[2023-09-26] MEDS: ZESTRIL 40 MG PO (08:36)
[2023-09-26] MEDS: LOW STRENGTH ASPIRIN 81 MG PO (08:36)
--- NOTE | 2023-09-26 09:15 | PTOTSP ---
Speech Language Pathology
Pt seen for cognitive-linguistic evaluation via the [facility] Mental Status (UMS) Examination. Pt with a score of 7/30. Pt with mod-severe cognitive deficits. Pt cooperative and pleasant with no insight into deficits. CAM-ICU
administered, which was negative for delirium.
is refusing SNF. If pt is to return home, she will require 24/7 supervision given cognitive deficits. CHAR FILTER OPERATOR to continue to follow.
--- NOTE | 2023-09-26 10:43 | CM ---
Addendum entered by Bernie Kelley 09/26/23 12:49:
Patient and seen, PT eval recommending home PT, family agreeable to [facility] referral, TT sent to Hospitalist for VN orders. TT sent to [facility] liaison with referral. IMM reviewed, signed, placed in chart. Provided with private caregiver information.
Plan; home with family, VN pending acceptance, private caregiver information.
Original Note:
Patient seen bedside with , Kash, discussed PT/OT recommendations of SNF, reports he is retired and is home, along with patients son who resides with them. Patients is not agreeable to SNF. CM discussed recommendation if
returning home with 04/09 care. Patient understands and reports he is home all the time, son is home as well. CM will provide list of private duty caregivers. reports patient typically ambulates without device, does have a walker if
needed. Home is a ranch style home, no steps, no basement. Will watch for PT evaluations to see if patient will need home therapy upon discharge as not agreeable to SNF. CM will continue to follow for all discharge planning needs.
Plan; home with family, refusing SNF, will provide private caregiver information.
[2023-09-26 11:38] VITALS: BP 152/83; BP 161/88; BP 171/79; PULSE 56; PULSE 57; PULSE 65
[2023-09-26 11:45] VITALS: BP 152/75; PULSE 61; O2SAT 99
--- NOTE | 2023-09-26 11:50 | W.PN.NEPH.PH ---
Today's Communication / Plan
-
Maintain current antihypertensives
Follow BMP
Assessment/Plan
-
IMP:
Hypertensive Emergency
Acute TME
mild Hypercalcemia
Mild chronic Hyponatremia
Weight Loss
Anxiety / Insomnia
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
Plan:
Serum sodium stable at 130
A/w HTN and increased confusion , MRI show old lacunar infarcts
HTN emergency vs urgency-hypotensive last night with procardia and sedation, off evie gtt this am
would cont home meds at this time and not add any new meds (nifedipine 30 mg daily lisinopril 40 mg daily atenolol 100 mg twice a day), IV hydralazine as needed
seem to have baseline postural hypotension based on history
would check orthostatics when possible
concerned that she may have underlying mild dementia with old lacunar infarcts
suggest permissive HTNupto 140-150s seem reasonable
TSH is normal , echo with mild LVH
Kidney function stable
pending ARR and renal duplex: no obvious MICHELE
UA with pyuria with out dysuria
mild hypercalcemia corrected 10.6, pTH pending, avoid ke and vit D meds.
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
09/[address] Valencia on phone and he is concerned about wt loss and increased confusion and thinks there could be occult process going on, he wants to do CT abd which is ordered out pt-could consider to complete here, reportedly old US
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
d/w , primary and nursing
-
-
Date of Service: September 26, 2023
CC / HPI / ROS
-
Chief Complaint:
HTN, hyponatremia
History of Present Illness:
BP elevated but stable today
Off since this am, now BPs are high at 170s
Pt was very agitated last night, needed to be sedated, now off. also wrist restraints
cr at 0.9, BUN 20
Sodium 129
Review of Systems:
sleeping during visit, no fever
Labs
-
Labs:
WBC 6.7 10^3/uL (4.8-10.8) 09/26/23 06:00
RBC 3.73 10^6/uL (4.20-5.40) L 09/26/23 06:00
Hgb 12.6 g/dL (12.0-16.0) 09/26/23 06:00
Hct 34.6 % (37.0-47.0) L 09/26/23 06:00
Plt Count 244 10^3/uL (130-400) 09/26/23 06:00
Sodium 130 mmol/L (135-145) L 09/26/23 06:00
Potassium 3.7 mmol/L (3.5-5.1) 09/26/23 06:00
Chloride 99 mmol/L (98-107) 09/26/23 06:00
Carbon Dioxide 22 mmol/L (22-30) 09/26/23 06:00
BUN 25 mg/dl (7-17) H 09/26/23 06:00
Creatinine 0.8 mg/dL (0.6-1.0) 09/26/23 06:00
eGFR > 60.00 09/26/23 06:00
Glucose 83 mg/dl (70-99) 09/26/23 06:00
Calcium 9.5 mg/dl (8.4-10.2) 09/26/23 06:00
Phosphorus 3.5 mg/dl (2.5-4.5) 09/24/23 01:01
Albumin 4.0 g/dl (3.5-5.0) 09/26/23 06:00
Physical Exam
-
Vital Signs:
Vital Signs
Temp Pulse Resp BP Pulse Ox
98.2 F 56 16 169/86 100
09/26/23 11:40 09/26/23 07:15 09/26/23 07:15 09/26/23 07:15 09/26/23 07:15
Cardiovascular:: Regular rate and rhythm
Respiratory:: Bilateral: CTA
Lung Excursion:: Normal
Abdomen:: Nontender and Soft
Extremity Edema:: None: Bilateral:
Goodman Catheter: No
--- NOTE | 2023-09-26 12:03 | W.PN.HOSP.TC ---
Addendum entered and electronically signed by Phil Pinto MD 09/28/23 16:58:
Moderate protein calorie malnutrition
Addendum entered and electronically signed by Phil Pinto MD 09/26/23 17:07:
[id number]
Original Note:
Today's Communication/Plan
-
hold Xanax if possible
add Nifedipine - monitor BP outpatient
ASA, started on statin - F/u on LDL outpatient
follow-up neuropsychologist outpatient
Assessment / Plan
Assessment / Plan
Physical Exam
General: Other (78y F in no acute distress.)
HEENT: Moist mucous membranes, PERRLA and Other (Neck supple.)
Respiratory: Clear; No Wheezes, Rales or Rhonchi
Cardiac: S1/S2 and Regular Rhythm; No Murmur
GI: Soft, Non Tender, Non Distended and Normal Bowel Sounds
Musculoskeletal: No Clubbing, No Cyanosis and No Edema
Neuro: AO x 3 and Nonfocal/grossly intact
Psych: No Anxious or Depressed
A/P: Patient is a 78y F with PMH significant for hypertension who presents to ED complaining of headache, confused and blurry vision.
Hypertensive Emergency
Baseline postural hypotension
- Transition to PO regimen
-Off nicardipine ggt
-Nephro consulted
-DG to telemetry if BP stable
-Resume Home antihypertensives; add nifedpine
-trops negative
-renal dopplers unremarkable for arterial stenosis
Acute TME secondary to hypertensive emergency v +/- ongoing dementia
� Favoring Alzheimer's dementia
-No acute pathology on MRI brain although notable for chronic infarcts
-Control BP
-ASA, started on statin - F/u on LDL outpatient
�Neurology consulted, follow-up neuropsychologist outpatient
�Haldol as needed
� No clear indication for additional neuroimaging or EEG at this time
Hypercalcemia
- Mild hypercalcemia. resolved
Mild Hyponatremia
- Follow for changes. Hesitate to initiate fluid restriction at this time given reportedly poor PO intake.
- monitor
� Free water restriction for 48 ounces
-F/u bmp outpatient
Weight Loss
- Reported 50 lbs weight loss in the past 1 1/2 years.
- Patient reportedly up to date with routine screenings (mammo, colonoscopy, etc).
- CT A/P ordered as an outpatient for further evaluation. No obvious acute need at this time - f/u outpatient
Echogenic lesion within the lower pole of the left kidney measuring 10 x 10 x 12 mm, likely an angiomyolipoma
-F/u outpatient
Anxiety / Insomnia
- Continue duloxetine.
- Hold marijuana during inpatient stay - ? related to confusion issues, etc given coincidental timing? - resume and monitor outpatient
-hold Xanax if possible
DVT Prophylaxis: HSQ
Code Status: Full
More than 30 minutes spent in discharge including
Final examination of the patient
Summarizing hospital stay
Instructions for continuing care to all relevant caregivers
Preparation of discharge records, prescriptions, and referral forms
Total time spent (35 in minutes):
Anticipated Discharge: Today
Subjective/Interval History
-
Date of Service: September 26, 2023
no acute events, mental status confused but not agitated
Objective Data
-
Labs:
Laboratory Results
09/26/23
06:00
WBC 6.7
Hgb 12.6
Hct 34.6 L
Plt Count 244
Sodium 130 L
Potassium 3.7
Chloride 99
Carbon Dioxide 22
BUN 25 H
Creatinine 0.8
Glucose 83
Calcium 9.5
Total Bilirubin 0.6
AST 33
ALT 18
Alkaline Phosphatase 73
Vital Signs:
Vital Signs
Temp Pulse Resp BP Pulse Ox
98.2 F 56 16 169/86 100
09/26/23 11:40 09/26/23 07:15 09/26/23 07:15 09/26/23 07:15 09/26/23 07:15
I&O
09/25/23 09/26/23 09/27/23
06:59 06:59 06:59
Intake Total 1308.5 / 1314.5 758 / 758
Output Total 1450 / 1450 100 / 100
Balance -141.5 / -135.5 658 / 658
Review of Systems
-
History Source: Patient
All other systems: Not reviewed unless documented
Data Reviewed
-
CT Scan: Image personally visualized and interpreted and Report Reviewed by me
Ultrasound: Report Reviewed by me
MRI: Image personally visualized and interpreted and Report Reviewed by me
Labs: Labs Reviewed by me
--- NOTE | 2023-09-26 12:11 | W.DS.TRANS ---
DC Summary - Supervisor Sleeping Bag Department
-
Discharge Instructions:
Discharge Diagnosis/Procedures Hypertensive Emergency
Baseline postural hypotension
Acute on Chronic Encephalopathy - suspect
worsening dementia
Diet Low Cholesterol,Low Fat
Activity As tolerated
Instructions:
Stand-Alone Forms:
Changes to Home Medications: Yes
Discharge Medications:
DC Medications w/original date entered in [facility]
allopurinol 100 mg tablet 100 mg PO DAILY Gout 05/25/22
alprazolam 0.25 mg tablet 0.25 mg PO DAILY PRN anxiety 05/25/22
atenolol 100 mg tablet 100 mg PO BID Blood pressure 05/25/22
lisinopril 40 mg tablet 40 mg PO DAILY Blood pressure 05/25/22
duloxetine 30 mg capsule,delayed release 30 mg PO DAILY Mental Health/Anxiety 09/23/23
ezetimibe 10 mg tablet 10 mg PO DAILY High Cholesterol 09/23/23
Medical Marijuana 5mg Gummies 5 mg PO HS Sleep 09/25/23
aspirin 81 mg chewable tablet 81 mg PO DAILY #30 tabs 09/26/23
atorvastatin 40 mg tablet 40 mg PO HS #30 tabs 09/26/23
nifedipine 30 mg tablet,extended release 30 mg PO DAILY 30 days #30 tabs 09/26/23
Home Medication Changes
aspirin 81 mg chewable tablet 81 mg PO DAILY #30 tabs 09/26/23
atorvastatin 40 mg tablet 40 mg PO HS #30 tabs 09/26/23
nifedipine 30 mg tablet,extended release 30 mg PO DAILY 30 days #30 tabs 09/26/23
Pending Results: No
[2023-09-26 12:59] VITALS: BP 152/75; PULSE 59; O2SAT 98
[2023-09-27 20:35] LABS: Aldosterone, Serum 12.8 ng/dL; Renin Activity Results 0.4 ng/mL/hr
== END 2023-09-26 13:53 | disposition home or self-care (01) | DRG 304 ==
LOC: 4 WEST ACU 22:45
PROVIDERS: Emergency Medicine; ADMITTING PHYSICIAN Hospitalist; ATTENDING PHYSICIAN Internal Medicine; CONSULT PHYSICIAN Psychiatry & Neurology Neurology; EMERGENCY PHYSICIAN Emergency Medicine; FAMILY PHYSICIAN Internal Medicine; OTHER PHYSICIAN Internal Medicine
DX: I16.1 Hypertensive emergency (principal); G92.8 Other toxic encephalopathy; E87.1 Hypo-osmolality and hyponatremia; F02.84 Dementia in other diseases classified elsewhere, unspecified severity, with anxiety; F02.818 Dementia in other diseases classified elsewhere, unspecified severity, with other behavioral disturbance; E44.0 Moderate protein-calorie malnutrition; G30.9 Alzheimer's disease, unspecified; I95.1 Orthostatic hypotension; R63.4 Abnormal weight loss; G47.00 Insomnia, unspecified; Z68.21 Body mass index [BMI] 21.0-21.9, adult
CPT/HCPCS: 70450; 70551; 71046; 80048; 80053; 80061; 81003; 81015; 82024; 82088; 82533; 82570; 82607; 82728; 82746; 83036; 83735; 83935; 83970; 84100; 84244; 84300; 84443; 84484; 85025; 85027; 85610; 85730; 92523; 93005; 93306; 93975; 96374; 97163; 97167; 97530; 97535; 99291

== ENCOUNTER → 2024-06-24 14:21 | Outpatient (REF) | payer MEDICARE, OTHER, SELFPAY | LOC: HWRAD 14:21 | PROVIDERS: ATTENDING PHYSICIAN Internal Medicine | DX: M62.89 Other specified disorders of muscle (principal) | CPT/HCPCS: 76882 ==